=== PATIENT | male | born 1960 | race Caucasian/White ===

== ENCOUNTER → 2019-05-29 16:13 | Outpatient (BNVA) | payer MEDICARE, MEDICAID, SELFPAY | PROVIDERS: Family Provider Nurse Practitioner Family; PCP Nurse Practitioner Family; Visit Provider Nurse Practitioner Family | DX: J44.9 Chronic obstructive pulmonary disease, unspecified (principal); J84.9 Interstitial pulmonary disease, unspecified; R05 Cough | CPT/HCPCS: 71046; 80053; 85025 ==

== ENCOUNTER 2019-06-06 13:53 | Outpatient (CLI) | payer MEDICARE, MEDICAID, SELFPAY ==
--- NOTE | 2019-06-06 14:00 | CT_ITS ---
WS: [id number] CT CHEST TECHNIQUE: Noncontrast CT of the chest with coronal and sagittal reformatted images. CLINICAL INFORMATION: see dx COMPARISON: CTA chest June 06, 2017 DLP: 629.[address] scans at [facility] use at least one of these dose optimization techniques: automat ed exposure control; mA and/or kV adjustment per patient size (includes targeted exams where dose is matched to clinical indication); or iterative reconstruction. FINDINGS: Moderate chronic emphysematous changes. No acute-appearing pulmonary infiltrates. Patchy fibrotic int erstitial and parenchymal opacities worse in the right upper lobe similar in appearance to the prior examination. Associated traction bronchiectasis unchanged. Small subpleural opacity right lower lobe measuring 7 mm is unchanged. Subpleural nodularity in both lungs. Fibrosis both lung apices. No mediastinal or hilar lymphadenopathy. Normal endobronchial tree. Left renal cyst measuring 2.[address]/CT chest wo con [id number] IMPRESSION: 1. Moderate to advanced chronic emphysematous changes with scattered interstit ial fibrosis and parenchymal opacities in both lungs unchanged. 2. Associated traction bronchiectasis worse in the right lung appears unchange d. 3. No mediastinal or hilar lymphadenopathy. 4. No new pulmonary infiltrates.
== END 2019-06-06 13:54 | disposition home or self-care (01) ==
LOC: RADWPI 13:58
PROVIDERS: Family Provider Nurse Practitioner Family; PCP Nurse Practitioner Family; Visit Provider Nurse Practitioner Family
DX: J84.9 Interstitial pulmonary disease, unspecified (principal); J43.9 Emphysema, unspecified; J47.9 Bronchiectasis, uncomplicated
CPT/HCPCS: 71250

== ENCOUNTER 2022-08-17 10:58 | Emergency (ER) | payer MEDICARE, MEDICAID, SELFPAY ==
[2022-08-17] VITALS (10 sets, daily range): BP systolic 132; BP diastolic 54; PULSE 64–95; RESP 15–16; TEMP 37.6; O2SAT 90–96; BMI 17.9
--- NOTE | 2022-08-17 11:07 | XRR_ITS ---
PROCEDURE INFORMATION: Exam: XR Chest Exam date and time: 08/17/2022 11:16 AM Age: 62 years old Clinical indication: Other: Syncopal episode TECHNIQUE: Imaging protocol: Radiologic exam of the chest. Views: 1 view. COMPARISON: CT chest con [id number] 06/06/2019 2:24 PM FINDINGS: Lungs: Patchy indistinct chronic interstitial densities are present in the right and left upper lobes. These findings were present on prior CT examination and appears similar Pleural spaces: Unremarkable. No pleural effusion. No pneumothorax. Heart/Mediastinum: Unremarkable. No cardiomegaly. Bones/joints: Unremarkable. XR/XR chest 1V portable [id number] IMPRESSION: 1. Chronic interstitial lung densities bilateral upper lung field stable since prior. 2. Otherwise negative examination
--- NOTE | 2022-08-17 11:07 | ECG_ITS ---
[facility] Test Date: 2022-08-17 Pat Name: Meek Whitney Department: Room: Gender: Male Edm Operator: : 1960 Requested By: Jordy Ford Order Number: [id number] Derek MD: Jamaal Yoon M.D. Measurements Intervals [place] Rate: 78 P: 63 NV: 134 QRS: 85 QRSD: 106 T: 77 QT: 327 QTc: 373 Interpretive Statements SINUS RHYTHM INCOMPLETE RIGHT BUNDLE BRANCH BLOCK [90+ ms QRS DURATION, TERMINAL R IN V1/V2, 40+ ms S IN I/aVL/V4/V5/V6] MODERATE ST DEPRESSION [0.05+ mV ST DEPRESSION] Compared to ECG 06/06/2017 01:22:42 Incomplete right bundle-branch block now present ST (T wave) deviation now present Sinus bradycardia no longer present Electronically Signed On 08-17-2022 11:52:52 CDT by Jamaal Yoon M.D. [id number]
--- NOTE | 2022-08-17 11:33 | CT_ITS ---
WS: [id number] CT HEAD TECHNIQUE: Noncontrast CT of the head obtained from the skullbase to the vertex. CLINICAL INFORMATION: syncopal episode, fell and hit head COMPARISON: 2010 DLP: 1156.[address] scans at [facility] use at least one of these dose optimization techniques: automated e xposure control; mA and/or kV adjustment per patient size (includes targeted exams where dose is matc hed to clinical indication); or iterative reconstruction. FINDINGS: No evidence of intracranial hemorrhage or mass effect. Ventricular system and basal cisterns are vallejo nt. Moderate small vessel changes with moderate parenchymal volume loss. No extra-axial fluid collect ions. No evidence of mass or mass effect. Benign cary cisterna magna Paranasal sinuses and mastoid air cells are well aerated. .Normal visualized soft tissues. CT/CT head wo con* [id number] IMPRESSION: 1. No evidence of intracranial hemorrhage or mass effect. 2. Moderate small vessel changes. Moderate parenchymal volume loss. 3. No acute intracranial findings.
--- NOTE | 2022-08-17 11:35 | W.ED.DIZZY ---
HPI - Dizziness General: Chief Complaint: Dizziness Stated Complaint: DIZZY Time Seen by Provider: 08/17/22 11:07 History of Present Illness: HPI Narrative: Patient is a 62-year-old male who comes to the ED EMS after syncopal episode. 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 Patient was found down on the ground by a fellow coworker. Patient says he fell down and his head hit brick wall. Patient thinks he had LOC for approximately 30 minutes. He states that his coworkers have been telling him that he seems a little confused over the past 5 days because he has been repeating himself a lot. Here in the ED he endorses malaise and says he just generally feels unwell. Chest pain resolved after syncopal episode and he denies any current or active chest pain. He has been having a productive cough with green sputum for the past 7 days along with body aches. Denies any fevers. He does endorse having several episodes of emesis over the past couple days and he has not been eating or drinking much over the past several days. Associated symptoms: Reports chest pain (Resolved), malaise and syncope; Denies chills, headache(s), nausea, nasal congestion, palpitations or vomiting Associated neuro symptoms: Deny numbness in extremities Review of Systems Const: Reports: body aches and malaise; Denies: fever(s), chills or fatigue Eyes: Denies: change in vision or eye discomfort ENMT: Denies: throat pain, odynophagia, nasal discharge or nasal congestion Card: Reports: chest pain (Resolved), lightheadedness and syncope; Denies: palpitations, edema, swelling of feet/ankles, dyspnea on exertion or orthopnea Resp: Reports: productive cough and change in phlegm color (Green phlegm); Denies: dyspnea or non-productive cough GI: Denies: abdominal pain, nausea, vomiting, diarrhea, constipation or hematochezia : Denies: flank pain, difficulty urinating, dysuria or hematuria Musc: Denies: neck pain, back pain or extremity swelling Skin/Breast: Denies: rash or new lesions Neuro: Reports: dizziness; Denies: headache(s), numbness in extremities or weakness in extremities PFSH ED PFSH: Medical History (Updated 08/18/22 @ 08:32 by NOAH Quick) COPD (chronic obstructive pulmonary disease) Interstitial lung disease Surgical History (Updated 08/17/22 @ 12:42 by NOAH Quick) No pertinent past surgical history Social History Smoking and tobacco status: former smoker Alcohol intake: never Substance/Drug Use: never Lives independently: Yes Household members: spouse Housing: House Marital status: Physical Exam Const: COMMON NORMALS: patient oriented x3 GENERAL APPEARANCE: cooperative and comfortable HENMT: COMMON NORMALS: normocephalic HEAD & SCALP: normocephalic MOUTH: Normal oral and palatal mucosa present THROAT: posterior oropharynx normal and uvula midline Neck/C-Spine: COMMON NORMALS: supple GENERAL: Yes normal visual inspection Resp: COMMON NORMALS: normal respiratory effort, No retractions, No use of accessory muscles and clear to auscultation bilaterally AUSCULTATION: clear to auscultation bilaterally Cardio: COMMON NORMALS: regular rate, regular rhythm, S1 normal heart sound present, S2 normal heart sound present, No gallops present (Cardio), No clicks present (Cardio), No murmurs present (Cardio) and Peripheral pulses 2+ throughout RATE: regular rate RHYTHM: regular rhythm HEART SOUNDS: S1 normal heart sound present and S2 normal heart sound present PERIPHERAL PULSES: Peripheral pulses 2+ throughout GI: COMMON NORMALS: Normal to inspection, nondistended, normoactive bowel sounds present, Soft to palpation, non-tender and no masses PALPATION: Yes Soft to palpation : COMMON NORMALS: Yes no CVA tenderness BLADDER/KIDNEY EXAM: Yes no CVA tenderness Back/Pelvis: COMMON NORMALS: no CVA tenderness Extremity: COMMON NORMALS: normal to inspection Neuro: COMMON NORMALS: patient oriented x3, CN's II-XII intact bilaterally, moves all extremities and no focal motor deficits COORDINATION/BALANCE: [id number] test normal GAIT: Yes Normal gait present MOTOR EXAM: 5/5 motor strength present throughout COORDINATION: [id number] test normal Skin: GENERAL SKIN EXAM: dry skin Course Vital Signs: Vital signs: Vital Signs Temperature 99.6 F 08/17/22 11:00 Pulse Rate 74 08/17/22 15:15 Respiratory Rate 16 08/17/22 12:46 Blood Pressure 132/54 08/17/22 15:15 Pulse Oximetry 90 08/17/22 15:15 Oxygen Delivery Me thod Room Air 08/17/22 12:46 MDM - Dizziness Medical Decision Making Patient is a 62-year-old male who comes to the ED EMS after syncopal episode. 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 Patient was found down on the ground by a fellow coworker. Patient says he fell down and his head hit brick wall. Patient thinks he had LOC for approximately 30 minutes. He states that his coworkers have been telling him that he seems a little confused over the past 5 days because he has been repeating himself a lot. Here in the ED he endorses malaise and says he just generally feels unwell. Chest pain resolved after syncopal episode and he denies any current or active chest pain. He has been having a productive cough with green sputum for the past 7 days along with body aches. Denies any fevers. He does endorse having several episodes of emesis over the past couple days and he has not been eating or drinking much over the past several days. Vital stable. Exam of patient is benign. Labs are all unremarkable. Chest x-ray shows chronic interstitial lung densities bilateral upper lung field stable since prior. No other acute findings noted. Head CT showed no acute findings. EKG shows normal sinus rhythm, no ST segment elevation or depression seen. COVID test was positive. Patient was stable for discharge home and diagnosed with COVID and syncopal episode. He was told to follow-up with his PCP in the next week for reevaluation. He was sent home with a prescription for inhaler, antibiotic and steroid. Strict return to ED precautions given. Patient understood and agreed with plan. Lab Data I reviewed the patient's lab results. 08/17/22 11:37 08/17/22 11:37 Radiology Impressions Chest X-Ray 08/17/22 11:07 IMPRESSION: 1. Chronic interstitial lung densities bilateral upper lung field stable since prior. 2. Otherwise negative examination Head CT 08/17/22 11:33 IMPRESSION: 1. No evidence of intracranial hemorrhage or mass effect. 2. Moderate small vessel changes. Moderate parenchymal volume loss. 3. No acute intracranial findings. Laboratory Results WBC 6.6 10^3/uL (4.0-10.0) 08/17/22 11:37 RBC 4.10 10^6/uL (4.1-5.3) 08/17/22 11:37 Hgb 12.1 g/dL (11.7-16.6) 08/17/22 11:37 Hct 38.9 % (42.0-52.0) L 08/17/22 11:37 MCV 94.9 fl (80-94) H 08/17/22 11:37 MCH 29.5 pg (28.0-34.0) 08/17/22 11:37 MCHC 31.1 g/dL (30.0-36.0) 08/17/22 11:37 RDW 14.5 % (12.1-15.1) 08/17/22 11:37 Plt Count 190 10^3/cmm (130-400) 08/17/22 11:37 MPV 9.3 fL (7.4-10.4) 08/17/22 11:37 Neut % (Auto) 80.3 % 08/17/22 11:37 Lymph % (Auto) 3.2 % 08/17/22 11:37 [place] % (Auto) 14.5 % 08/17/22 11:37 Eos % (Auto) 0.9 % 08/17/22 11:37 Baso % (Auto) 0.5 % 08/17/22 11:37 Neut # (Auto) 5.33 10^3/uL (1.8-7.7) 08/17/22 11:37 Lymph # (Auto) 0.2 10^3/uL (0.8-4.8) L 08/17/22 11:37 [place] # (Auto) 1.0 10^3/uL (0.2-0.9) H 08/17/22 11:37 Eos # (Auto) 0.1 10^3/uL (0.0-0.8) 08/17/22 11:37 Baso # (Auto) 0.0 10^3/uL (0.0-0.1) 08/17/22 11:37 Nucleated RBC % (auto) 0 % 08/17/22 11:37 Nucleated RBCs # 0.0 /100WBC 08/17/22 11:37 Sodium 136 mmol/L (136-145) 08/17/22 11:37 Potassium 4.6 mmol/L (3.5-5.1) 08/17/22 11:37 Chloride 100 mmol/L (98-107) 08/17/22 11:37 Carbon Dioxide 24 mmol/L (22-29) 08/17/22 11:37 Anion Gap 16.6 (5-19) 08/17/22 11:37 BUN 10 mg/dL (8-23) 08/17/22 11:37 Creatinine 0.8 mg/dL (0.7-1.2) 08/17/22 11:37 GFR Calculation 98.3 mL/min (90-130) 08/17/22 11:37 Glucose 88 mg/dL (65-115) 08/17/22 11:37 Calculated Osmolality 280 mOsm/kg (285-295) L 08/17/22 11:37 Calcium 8.7 mg/dL (8.5-10.5) 08/17/22 11:37 Total Bilirubin 0.4 mg/dL (0.15-1.2) 08/17/22 11:37 AST 19 U/L (0-40) 08/17/22 11:37 ALT 7 U/L (0-41) 08/17/22 11:37 Alkaline Phosphatase 100 U/L (40-130) 08/17/22 11:37 Troponin T Baseline 8 ng/L (0-15) 08/17/22 11:37 Troponin T 120 Minute 9.51 ng/L (0-15) 08/17/22 14:19 Delta Troponin T 1.51 ABS# (0-10) 08/17/22 14:19 NT-Pro-B Natriuret Pep 103 pg/mL (0-125) 08/17/22 11:37 Total Protein 6.5 g/dL (6.6-8.7) L 08/17/22 11:37 Albumin 4.0 g/dL (3.5-5.2) 08/17/22 11:37 Globulin 2.5 g/dL (1.3-4.6) 08/17/22 11:37 Influenza Type A Ag negative (Negative) 08/17/22 13:51 Influenza Type B Ag negative (Negative) 08/17/22 13:51 SARS-CoV-2 Ag (Rapid) positive (Negative) 08/17/22 13:51 EKG Data EKG 1: EKG interpretation date: 08/17/22 Interpretation: Sinus rhythm, no ST segment elevation or depression seen. 74 bpm. Discharge Plan Discharge Patient Disposition: Home Clinical Impression: COVID-19, Episode of syncope Condition: Stable Prescriptions: New azithromycin 250 mg tablet See Rx Instructions .ROUTE .COMPLEX Qty: 6 0RF Rx Instructions: For 250 mg dose pack: take 500 mg today (day 1), then 250 mg for 4 days (days 2-5) albuterol sulfate 90 mcg/actuation HFA aerosol inhaler 2 inh inhalation Q6H PRN (Reason: shortness of breath or wheezing) Qty: 8.5 0RF methylprednisolone 4 mg tablets,dose pack See Rx Instructions .ROUTE .COMPLEX Qty: 21 0RF Rx Instructions: orally per package directions ondansetron 4 mg tablet,disintegrating 4 mg PO Q8H PRN (Reason: nausea and vomiting) Qty: 15 0RF Discharge Orders: Discharge ED (Routine); Ordered 08/17/22 Ordered By: Jordy Ford Referrals: Lazara Durant FNP-C [Primary Care Provider] - Discharge Diet: Regular Discharge Activity: Increase activity as tolerated Patient Instructions: COVID-19 (Coronavirus Disease 2019) (ED) Activity Restrictions/Additional Instructions: Follow-up with medical provider as directed in the next 5-7 days. Take medications as prescribed. Return to the ER or your medical provider if condition worsens. Please read and understand discharge instructions. Thank you for choosing [facility] for your healthcare needs today. Please realize this is an emergency room and that we are providing you with a medical screening exam and this may not be complete and all inclusive of all the testing and or work up that you may need to determine your ailment or severity of your illness. It is very important that you follow up as instructed or that you return to the Emergency Department should you have concerns or if your condition changes or worsens in any way. Coding Level of Care Code ED Material Handler for Willem Sheets
[2022-08-17 12:02] LABS: Basophils % 0.5 %; Eosinophils # 0.1 10^3/uL (0.0-0.8); Eosinophils % 0.9 %; Hematocrit 38.9 % (42.0-52.0); Hemoglobin 12.1 g/dL (11.7-16.6); Lymphocytes # 0.2 10^3/uL (0.8-4.8); Lymphocytes % 3.2 %; Mean Corpuscular HGB Conc 31.1 g/dL (30.0-36.0); Mean Corpuscular Hemoglobin 29.5 pg (28.0-34.0); Mean Corpuscular Volume 94.9 fl (80-94); Mean Platelet Volume 9.3 fL (7.4-10.4); Monocytes % 14.5 %; Neutrophils # 5.33 10^3/uL (1.8-7.7); Neutrophils % 80.3 %; Nucleated Red Blood Cells % 0 %; Platelet Count 190 10^3/cmm (130-400); Red Cell Distribution Width 14.5 % (12.1-15.1); White Blood Count 6.6 10^3/uL (4.0-10.0)
[2022-08-17 12:32] LABS: Troponin(5th) Baseline 8 ng/L (0-15)
[2022-08-17 12:40] LABS: Alanine Aminotransferase 7 U/L (0-41); Alkaline Phosphatase 100 U/L (40-130); Blood Urea Nitrogen 10 mg/dL (8-23); Calcium 8.7 mg/dL (8.5-10.5); Carbon Dioxide 24 mmol/L (22-29); Chloride 100 mmol/L (98-107); Globulin 2.5 g/dL (1.3-4.6); Glomerular Filtration Rate 98.3 mL/min (90-130); Glucose 88 mg/dL (65-115); NT Pro B Type Natriuretic Pept 103 pg/mL (0-125); Osmolality Calculated 280 mOsm/kg (285-295); Sodium 136 mmol/L (136-145); Total Bilirubin 0.4 mg/dL (0.15-1.2); Total Protein 6.5 g/dL (6.6-8.7)
[2022-08-17 12:41] LABS: Anion Gap 16.6 (5-19); Aspartate Amino Transferase 19 U/L (0-40); Potassium 4.6 mmol/L (3.5-5.1)
--- NOTE | 2022-08-17 13:07 | ECG_ITS ---
[facility] Test Date: 2022-08-17 Pat Name: Meek Whitney Department: Room: Gender: Male Associate Director: : 1960 Requested By: Jordy Ford Order Number: [id number] Reed MD: Jamaal Yoon M.D. Measurements Intervals [place] Rate: 74 P: 144 TX: 139 QRS: 105 QRSD: 105 T: 109 QT: 318 QTc: 354 Interpretive Statements SINUS RHYTHM ARM LEADS REVERSED [INVERTED P AND QRS IN I] Compared to ECG 08/17/2022 11:25:49 Incomplete right bundle-branch block no longer present ST (T wave) deviation no longer present Electronically Signed On 08-17-2022 17:00:09 CDT by Jamaal Yoon M.D. [id number]
[2022-08-17] MEDS: sodium chloride 0.9% 1,000 ML 999 ML IV (13:10)
--- NOTE | 2022-08-17 14:28 | PC.NURSE ---
Pt hooked up to continuous bedside cardiac monitoring.
[2022-08-17 14:31] LABS: Influenza A by IFA negative (Negative); Influenza B by IFA negative (Negative); SARS Covid-2 Antigen positive (Negative)
[2022-08-17 14:59] LABS: Troponin 5 2HR 9.51 ng/L (0-15)
[2022-08-17 15:03] LABS: Troponin 5 2HR Delta 1.51 ABS# (0-10)
== END 2022-08-17 15:40 | disposition home or self-care (01) ==
PROVIDERS: Emergency Provider Physician Assistant; PCP Nurse Practitioner Family
DX: U07.1 COVID-19 (principal); R55 Syncope and collapse; J44.9 Chronic obstructive pulmonary disease, unspecified; Z87.891 Personal history of nicotine dependence
CPT/HCPCS: 36415; 70450; 71045; 80053; 83880; 84484; 85025; 87426; 87804; 93005; 96360; 99285; J7030

== ENCOUNTER 2023-12-22 09:24 | Outpatient (CLI) | payer MEDICARE, MEDICAID, SELFPAY ==
--- NOTE | 2023-12-22 09:33 | CT_ITS ---
WS: [id number] CT chest w con* [id number] HISTORY: HEMOPTYSIS TECHNIQUE: Axial imaging performed through the thorax. Coronal and sagittal reformats are submitted. All CT scans at [facility] use at least one of these dose optimization techniques: automated exposure control; mA and/or kV adjustment per patient size (includes targeted exams where dose is mat ched to clinical indication); or iterative reconstruction. CONTRAST: Omnipaque 350; 100 mL IV. DLP: 226.33 mGy.cm COMPARISON: 06/06/2019 Lungs and central airway: Patient has severe centrilobular emphysema with pulmonary hyperexpansion. T here are several new, abnormal findings noted throughout the lungs. Irregular shaped cavitary lesion RIGHT upper lobe 1.3 x 2.1 cm. Irregular nodule RIGHT upper lobe 0.9 1.9 cm. Smaller thick-walled cav itary lesion RIGHT middle lobe with associated bronchiectasis and traction 1.0 x 0.6 cm. Moderate siz e area of groundglass attenuation RIGHT lower lobe. Additional minimal soft tissue thickening medial RIGHT upper lobe abutting the mediastinum. LEFT upper lobe nodule 0.9 cm. Posterior segment LEFT lowe r lobe 0.6 cm nodule. There are additional areas of bronchial wall thickening and traction bronchiect asis in the lower lung knight. There is marked bronchial wall thickening in several places along with some mucous debris. Pleura: Normal. No pleural effusion. Heart and pericardium: Normal size heart with no pericardial effusion. Mediastinum and maynor: Mediastinal and hilar lymph nodes are enlarged. Largest RIGHT suprahilar lymph node is 1.6 cm. Bilateral mediastinal lymph nodes with the largest on the LEFT 1.4 cm. Vessels: Mild atherosclerosis aorta. No aneurysm. Normal size pulmonary artery. No RIGHT heart strain . No pulmonary emboli. Chest wall and lower neck: No soft tissue masses. Upper abdomen: Heterogeneous appearance of the liver and spleen during the early arterial phase imagi ng. No definite hepatic mass identified. No adrenal mass. LEFT renal cyst 2.2 cm. Osseous structures: Mild curvature and increased thoracic kyphosis. CT/CT chest w con* [id number] IMPRESSION: 1. Significant interval change in appearance of the lungs and mediastinum sinc e 06/06/2019. 2. RIGHT upper lobe and RIGHT middle lobe cavitary lesions. The largest in the RIGHT upper lobe measures 1.3 x 2.1 cm. 3. Additional bilateral pulmonary nodules as described above with areas of chace undglass attenuation also. 4. Mediastinal and hilar lymphadenopathy with the largest lymph nodes measurin g up to 1.6 cm. 5. Advancing bilateral lower lobe bronchiectasis with bronchial wall thickenin g and secretions. Recommendation: Follow-up PET/CT imaging at this time. Pulmonary cavitary lesio ns, groundglass attenuation and nodules are suspicious for metastatic disease o r primary lung carcinoma with metastatic disease until proven otherwise.
[2023-12-22] MEDS: iohexol 350 mg/mL 500 mL Btl (per mL) IV (10:10)
== END 2023-12-22 09:25 | disposition home or self-care (01) ==
LOC: RAD 09:26
PROVIDERS: PCP Nurse Practitioner Family; Visit Provider Family Medicine
DX: J43.2 Centrilobular emphysema (principal); R91.8 Other nonspecific abnormal finding of lung field; R59.0 Localized enlarged lymph nodes; N28.1 Cyst of kidney, acquired; R04.2 Hemoptysis
CPT/HCPCS: 71260

== ENCOUNTER 2024-01-24 08:06 | Outpatient (CLI) | payer MEDICARE, MEDICAID, SELFPAY ==
[2024-01-24 08:24] VITALS: PULSE 80; RESP 18; O2SAT 94
[2024-01-24] MEDS: albuterol 2.5 mg/3 mL Neb INHALATION (08:24)
[2024-01-24 08:28] VITALS: PULSE 82
== END 2024-01-24 08:07 | disposition home or self-care (01) ==
PROVIDERS: PCP Family Medicine; Visit Provider Family Medicine
DX: R91.8 Other nonspecific abnormal finding of lung field (principal); R94.2 Abnormal results of pulmonary function studies
CPT/HCPCS: 94060; 94726; 94729; J7613

== ENCOUNTER 2024-03-01 07:48 | Oncology outpatient (recurring) (ONCR) | payer MEDICARE, MEDICAID, SELFPAY ==
[2024-03-01 09:18] LABS: Basophils # 0.1 10^3/uL (0.0-0.1); Basophils % 0.7 %; Eosinophils # 0.1 10^3/uL (0.0-0.8); Eosinophils % 1.9 %; Hematocrit 45.2 % (37-53); Lymphocytes # 1.3 10^3/uL (0.8-4.8); Lymphocytes % 16.8 %; Mean Corpuscular HGB Conc 32.3 g/dL (30-55); Mean Platelet Volume 8.8 fL (7.4-10.4); Monocytes # 0.7 10^3/uL (0.2-0.9); Monocytes % 9.5 %; Neutrophils # 5.27 10^3/uL (1.8-7.7); Neutrophils % 70.7 %; Nucleated Red Blood Cells % 0 %; Platelet Count 212 10^3/cmm (157-399); Red Blood Count 4.71 10^6/uL (3.85-5.65); Red Cell Distribution Width 12.6 % (12.1-15.1); White Blood Count 7.45 10^3/uL (3.29-11.43)
[2024-03-01 09:36] LABS: Erythrocyte Sedimentation Rate 4 mm/hr (0-10)
[2024-03-01 09:54] LABS: Alanine Aminotransferase 11 U/L (0-41); Albumin Level 4.2 g/dL (3.5-5.2); Alkaline Phosphatase 108 U/L (40-130); Anion Gap 11.8 (5-19); Aspartate Amino Transferase 21 U/L (0-40); Blood Urea Nitrogen 18 mg/dL (8-23); Calcium 10.1 mg/dL (8.5-10.5); Carbon Dioxide 30 mmol/L (22-29); Chloride 103 mmol/L (98-107); Creatinine Clr Calc Pharmacy 71.5512; Glomerular Filtration Rate 97.6 mL/min (90-130); Glucose 95 mg/dL (65-115); Lactate Dehydrogenase 153 U/L (135-225); Osmolality Calculated 292 mOsm/kg (285-295); Potassium 4.8 mmol/L (3.5-5.1); Sodium 140 mmol/L (136-145); Total Bilirubin 0.5 mg/dL (0.15-1.2); Total Protein 7.2 g/dL (6.6-8.7)
== END 2024-03-10 23:59 | disposition home or self-care (01) ==
PROVIDERS: PCP Family Medicine; Visit Provider Internal Medicine
DX: R91.8 Other nonspecific abnormal finding of lung field (principal); R59.0 Localized enlarged lymph nodes; F32.A Depression, unspecified; J44.9 Chronic obstructive pulmonary disease, unspecified; R05.9 Cough, unspecified; R04.2 Hemoptysis; R41.3 Other amnesia
CPT/HCPCS: 36415; 80053; 83615; 85025; 85651; 99205

== ENCOUNTER 2024-03-21 10:12 | Oncology outpatient (recurring) (ONCR) | payer MEDICARE, MEDICAID, SELFPAY | END 2024-04-10 23:59 | disposition home or self-care (01) | PROVIDERS: PCP Family Medicine; Visit Provider Internal Medicine | DX: R91.8 Other nonspecific abnormal finding of lung field (principal); J44.9 Chronic obstructive pulmonary disease, unspecified; T81.82XA Emphysema (subcutaneous) resulting from a procedure, initial encounter; J47.9 Bronchiectasis, uncomplicated; N28.1 Cyst of kidney, acquired; R41.3 Other amnesia; X58.XXXA Exposure to other specified factors, initial encounter | CPT/HCPCS: 99213 ==

== ENCOUNTER 2024-07-02 08:33 | Outpatient (CLI) | payer MEDICAID, SELFPAY ==
--- NOTE | 2024-07-02 08:35 | MR_ITS ---
WS: [id number] MRI BRAIN WITHOUT CONTRAST HISTORY: UNUSUAL CHANGE IN BEHAVIOR COMPARISON: 08/17/2022 TECHNIQUE: Diffusion imaging, multiplanar T1, T2 and FLAIR imaging obtained. No evidence for acute infarct or hemorrhage. Lopez-white matter differentiation is normal. Moderate symmetric volume loss and atrophy. Mild small vessel disease. No large infarct. Retrocerebellar arachnoid cyst. Small anterior LEFT middle cranial fossa arachnoid cyst. Ventricles and extra-axial spaces are normal. Very slight ectopia of the cerebellar tonsils. No Chiari malformation. Negative dorsum sellae and pituitary gland. Dural venous sinuses and nondalton of [place] demonstrate no abnormality on this unenhanced studies. Paranasal sinuses: Clear. Mastoid air cells: Normal. Calvarium and scalp: Intact. MR/MR head wo con* [id number] IMPRESSION: 1. Normal diffusion imaging. No acute infarct. No hemorrhage. 2. Moderate volume loss and atrophy. Mild small vessel disease. 3. Minimal ectopia of the cerebellar tonsils.
== END 2024-07-02 08:34 | disposition home or self-care (01) ==
PROVIDERS: PCP Family Medicine; Visit Provider Family Medicine
DX: R46.89 Other symptoms and signs involving appearance and behavior (principal); G31.89 Other specified degenerative diseases of nervous system; R93.0 Abnormal findings on diagnostic imaging of skull and head, not elsewhere classified; G93.0 Cerebral cysts
CPT/HCPCS: 70551

== ENCOUNTER 2024-08-16 23:00 | Emergency (ER) | payer MEDICARE, MEDICAID, SELFPAY ==
[2024-08-16 23:00] VITALS: BP 93/52; PULSE 66; RESP 16; TEMP 36.6; O2SAT 97; BMI 16.9
--- NOTE | 2024-08-16 23:26 | ECG_ITS ---
[facility]: 2024[facility]16 Pat Name: Meek Whitney Department: Room: Gender: Male Global Compensation Analyst: : 1960 Requested By: Joe Smith Order Number: [id number] Reed MD: Jamaal Yoon M.D. Measurements Intervals [place] Rate: 65 P: 78 WV: 147 QRS: 88 QRSD: 109 T: 89 QT: 346 QTc: 361 Interpretive Statements SINUS RHYTHM POSSIBLE RIGHT VENTRICULAR CONDUCTION DELAY [RSR (QR) IN V1/V2] EARLY REPOLARIZATION [ST ELEVATION WITH NORMALLY INFLECTED T-WAVE] Compared to ECG 08/17/2022 13:20:30 Early repolarization now present Electronically Signed On 08-17-2024 13:33:34 CDT by Jamaal Yoon M.D. [id number] [id number]
[2024-08-16 23:42] LABS: Basophils % 0.5 %; Eosinophils # 0.2 10^3/uL (0.0-0.8); Eosinophils % 3.1 %; Hematocrit 41.7 % (37-53); Lymphocytes # 1.2 10^3/uL (0.8-4.8); Lymphocytes % 15.6 %; Mean Corpuscular HGB Conc 30.9 g/dL (30-55); Mean Corpuscular Hemoglobin 29.3 pg (27-33); Mean Corpuscular Volume 94.8 fl (82-101); Mean Platelet Volume 8.7 fL (7.4-10.4); Monocytes # 0.6 10^3/uL (0.2-0.9); Monocytes % 8.2 %; Neutrophils % 72.1 %; Nucleated Red Blood Cells % 0 %; Platelet Count 193 10^3/cmm (157-399); Red Cell Distribution Width 13.2 % (12.1-15.1); White Blood Count 7.64 10^3/uL (3.29-11.43)
[2024-08-16] MEDS: sodium chloride 0.9% 1,000 ML 999 ML IV (23:44)
[2024-08-17 00:01] LABS: Troponin(5th) Baseline < 6 ng/L (0-15)
[2024-08-17 00:04] LABS: Alanine Aminotransferase 11 U/L (0-41); Albumin Level 3.8 g/dL (3.5-5.2); Alkaline Phosphatase 110 U/L (40-130); Anion Gap 12.1 (5-19); Aspartate Amino Transferase 15 U/L (0-40); Blood Urea Nitrogen 15 mg/dL (8-23); Calcium 9.8 mg/dL (8.5-10.5); Carbon Dioxide 28 mmol/L (22-29); Chloride 102 mmol/L (98-107); Creatinine Clr Calc Pharmacy 71.5512; Globulin 2.3 g/dL (1.3-4.6); Glomerular Filtration Rate 97.6 mL/min (90-130); Glucose 138 mg/dL (65-115); Osmolality Calculated 289 mOsm/kg (285-295); Potassium 4.1 mmol/L (3.5-5.1); Sodium 138 mmol/L (136-145); Total Bilirubin 0.2 mg/dL (0.15-1.2); Total Protein 6.1 g/dL (6.6-8.7)
[2024-08-17 00:28] VITALS: BP 123/63; PULSE 74; RESP 22; O2SAT 97
[2024-08-17 00:35] VITALS: BP 111/64; BP 124/62; BP 129/63; PULSE 72; PULSE 77; PULSE 80
--- NOTE | 2024-08-17 01:07 | W.ED.SYNCOPE ---
HPI - Syncope General: Chief Complaint: Syncope Stated Complaint: Near syncope, HTN Time Seen by Provider: 08/16/24 23:11 History of Present Illness: 64-year-old male who presents emerged part with complaint of near syncope. He was at his long term and was talking to the nurses when he became lightheaded. He did not fall to the ground. He did not lose consciousness. His blood pressure was noted to be low. He feels weak but otherwise no other significant complaints. Denies any chest pain or shortness of breath. Related Data Home Medications ?Medication ?Instructions ?Recorded ?Confirmed escitalopram oxalate 10 mg tablet mg PO 03/01/24 03/21/24 Allergies Allergy/AdvReac Type Severity Reaction Status Date / Time No Known Allergies Allergy Verified 03/21/24 10:41 PFS ED PFSH: Medical History COPD (chronic obstructive pulmonary disease) Interstitial lung disease Surgical History No pertinent past surgical history Social History Smoking and tobacco/nicotine status: never used tobacco/nicotine Alcohol intake: never Substance/Drug Use: never Lives independently: Yes Household members: spouse Housing: House Marital status: Physical Exam Const: COMMON NORMALS: patient oriented x3 HENMT: COMMON NORMALS: normocephalic, atraumatic, hearing grossly normal bilaterally, external ears normal, EAC's normal, TM's normal bilaterally, Normal external nose present, Normal nasal mucous membranes and turbinates present, moist oral mucous membranes, oropharynx normal, dentition normal and gingiva normal HEAD & SCALP: normocephalic and atraumatic NOSE: Normal external nose present and Normal nasal mucous membranes and turbinates present EXTERNAL EAR: Yes external ears normal EXTERNAL AUDITORY CANAL: EAC's normal TYMPANIC MEMBRANE: TM's normal bilaterally Neck/C-Spine: COMMON NORMALS: no JVD Resp: COMMON NORMALS: normal respiratory effort, No retractions, No use of accessory muscles, clear to auscultation bilaterally and percussion normal AUSCULTATION: clear to auscultation bilaterally PERCUSSION: percussion normal Cardio: COMMON NORMALS: no JVD, regular rate, regular rhythm, S1 normal heart sound present, S2 normal heart sound present, No gallops present (Cardio), No clicks present (Cardio), No murmurs present (Cardio), No rub (Cardio) and Peripheral pulses 2+ throughout RATE: regular rate RHYTHM: regular rhythm HEART SOUNDS: S1 normal heart sound present and S2 normal heart sound present PERIPHERAL PULSES: Peripheral pulses 2+ throughout GI: COMMON NORMALS: Normal to inspection, nondistended, normoactive bowel sounds present, Soft to palpation, non-tender, No hepatosplenomegaly present, no masses and no bruits PALPATION: Yes Soft to palpation and Yes No hepatosplenomegaly present Neuro: COMMON NORMALS: patient oriented x3, CN's II-XII intact bilaterally, no focal motor deficits and no sensory deficits noted Course Vital Signs: Vital signs: Vital Signs Temperature 97.9 F 08/16/24 23:00 Pulse Rate 72 08/17/24 00:35 Respiratory Rate 22 H 08/17/24 00:28 Blood Pressure 111/64 08/17/24 00:35 Pulse Oximetry 97 08/17/24 00:28 Oxygen Delivery Me thod Room Air 08/17/24 00:28 MDM - Syncope Medical Decision Making Patient with hypotension and near syncope. No significant abnormality noted on labs. Patient given IV fluids and feeling much better now. Blood pressure has improved. Orthostatics after IV fluids are normal. I suspect patient's symptoms just secondary to orthostatic hypotension. EKG shows nonspecific ST and T wave changes. Patient never had any chest pain or palpitations. Denies any indication of cardiopulmonary disease at this time. Patient does not have any neurodeficits. Discussed with patient that he is to drink more fluids. Lab Data 08/16/24 23:33 08/16/24 23:33 Laboratory Results WBC 7.64 10^3/uL (3.29-11.43) 08/16/24 23: RBC 4.40 10^6/uL (3.85-5.65) 08/16/24 23: Hgb 12.90 g/dL (11.27-16.99) 08/16/24 23: Hct 41.7 % (37-53) 08/16/24 23: MCV 94.8 fl (82-101) 08/16/24 23: MCH 29.3 pg (27-33) 05/08/25 23:33 MCHC 30.9 g/dL (30-55) 08/16/24 23:33 RDW 13.2 % (12.1-15.1) 08/16/24 23: Plt Count 193 10^3/cmm (157-399) 08/16/24 23:33 MPV 8.7 fL (7.4-10.4) 08/16/24 23:33 Neut % (Auto) 72.1 % 08/16/24 23: Lymph % (Auto) 15.6 % 08/16/24 23: [place] % (Auto) 8.2 % 08/16/24 23: Eos % (Auto) 3.1 % 08/16/24 23: Baso % (Auto) 0.5 % 08/16/24 23: Neut # (Auto) 5.50 10^3/uL (1.8-7.7) 08/16/24 23: Lymph # (Auto) 1.2 10^3/uL (0.8-4.8) 08/16/24 23:33 [place] # (Auto) 0.6 10^3/uL (0.2-0.9) 08/16/24 23: Eos # (Auto) 0.2 10^3/uL (0.0-0.8) 08/16/24 23: Baso # (Auto) 0.0 10^3/uL (0.0-0.1) 08/16/24 23: Nucleated RBC % (auto) 0 % 08/16/24 23: Nucleated RBCs # 0.0 /100WBC 08/16/24 23:33 Sodium 138 mmol/L (136-145) 08/16/24 23:33 Potassium 4.1 mmol/L (3.5-5.1) 08/16/24 23:33 Chloride 102 mmol/L (98-107) 08/16/24 23: Carbon Dioxide 28 mmol/L (22-29) 08/16/24 23:33 Anion Gap 12.1 (5-19) 08/16/24 23:33 BUN 15 mg/dL (8-23) 08/16/24 23:33 Creatinine 0.8 mg/dL (0.7-1.2) 08/16/24 23:33 GFR Calculation 97.6 mL/min (90-130) 08/16/24 23:33 Glucose 138 mg/dL (65-115) H 08/16/24 23:33 Calculated Osmolality 289 mOsm/kg (285-295) 08/16/24 23:33 Calcium 9.8 mg/dL (8.5-10.5) 08/16/24 23:33 Total Bilirubin 0.2 mg/dL (0.15-1.2) 08/16/24 23:33 AST 15 U/L (0-40) 08/16/24 23:33 ALT 11 U/L (0-41) 08/16/24 23:33 Alkaline Phosphatase 110 U/L (40-130) 08/16/24 23:33 Troponin T Baseline < 6 ng/L (0-15) 08/16/24 23:33 Total Protein 6.1 g/dL (6.6-8.7) L 08/16/24 23:33 Albumin 3.8 g/dL (3.5-5.2) 08/16/24 23:33 Globulin 2.3 g/dL (1.3-4.6) 08/16/24 23:33 All radiology interpretation(s) finalized by discharge Discharge Plan Discharge Patient Disposition: Home Clinical Impression: Orthostatic hypotension Condition: Stable Prescriptions: No Action escitalopram oxalate 10 mg tablet PO Discharge Orders: Discharge ED (Routine); Ordered 08/17/24 Ordered By: Joe Smith Referrals: Jackson Harrell MD [Primary Care Provider, Family Practice] Patient Instructions: Opioid Safety, Pain Management Print Language: Kyrgyz Coding Level of Care Code ED Client Development Director for Willem Sheets
[2024-08-17 02:11] VITALS: BP 108/65; PULSE 75; RESP 16; O2SAT 98
== END 2024-08-17 02:12 | disposition home or self-care (01) ==
PROVIDERS: Emergency Provider Emergency Medicine; PCP Family Medicine
DX: I95.1 Orthostatic hypotension (principal); J44.9 Chronic obstructive pulmonary disease, unspecified
CPT/HCPCS: 36415; 80053; 84484; 85025; 93005; 99284; J7030

== ENCOUNTER → 2024-09-26 07:36 | Outpatient (BNVA) | payer MEDICAID, SELFPAY | PROVIDERS: PCP Family Medicine; Referring Provider Family Medicine; Visit Provider Psychiatry & Neurology Neurology | DX: R42 Dizziness and giddiness (principal); I95.1 Orthostatic hypotension; R41.3 Other amnesia | CPT/HCPCS: 99203 ==

== ENCOUNTER → 2025-01-08 13:58 | Outpatient (BNVA) | payer MEDICAID, SELFPAY | PROVIDERS: PCP Family Medicine; Referring Provider Psychiatry & Neurology Neurology; Visit Provider Internal Medicine | DX: R07.9 Chest pain, unspecified (principal); R55 Syncope and collapse; R06.09 Other forms of dyspnea; R42 Dizziness and giddiness | CPT/HCPCS: 93005; 99204 ==

== ENCOUNTER 2025-01-31 06:49 | Outpatient (CLI) | payer MEDICAID, SELFPAY ==
--- NOTE | 2025-01-31 07:00 | USCV_ITS ---
Meek Whitney Age: 64 Gender: M : 1960 Exam Date: 01/31/2025 07:09 Ordering Phys: Jamaal Yoon M.D ([email or web address]) Technologist: Exam Location: [facility] [place] Indication: cp sob BP: 120 / 75 HR: 70 Rhythm: Sinus Technical Quality: Adequate MEASUREMENTS (Male / Female) Normal Values 2D ECHO LV Diastolic Diameter PLAX 4.0 cm 4.2 - 5.9 / 3.9 - 5.3 cm IVS Diastolic Thickness 1.0 cm 0.6 - 1.0 / 0.6 - 0.9 cm IVS Systolic Thickness 1.3 cm LVPW Diastolic Thickness 1.0 cm 0.6 - 1.0 / 0.6 - 0.9 cm LVPW Systolic Thickness 1.4 cm LVOT Diameter 2.1 cm LV Ejection Fraction 2D Teich 71.6 % LV Ejection Fraction MOD 4C 56.2 % LV Ejection Fraction MOD 2C 56.8 % LV Ejection Fraction 2C AL 56.9 % LA Diameter 2.5 cm RA Systolic Volume 4C AL 24.8 ml RA Systolic Volume 4C MOD 22.4 ml LA Sys Volume AL 37.9 cm cubed LA Sys Volume Index AL 20.0 cm cubed/m squared Aorta at Sinotubular Diameter 3.2 cm M-MODE LA Ao Ratio MM 0.9 AV Cusp Separation MM 2.0 cm DOPPLER AV Peak Velocity 189.3 cm/s LVOT Peak Velocity 104.0 cm/s AV Area Cont Eq vti 2.5 cm squared AV Area Cont Eq pk 2.0 cm squared MV Peak Velocity 81.0 cm/s MV Area PHT 3.7 cm squared Mitral E to A Ratio 1.1 TV Peak Velocity 197.3 cm/s TR Peak Velocity 264.0 cm/s TR Peak Gradient 27.9 mmHg TV Peak E Velocity 81.0 cm/s FINDINGS Left Ventricle Normal left ventricular size, systolic function and wall thickness, with no regional wall motion abnormalities. Left ventricular ejection fraction is estimated at 60 %. Normal diastolic function. Right Ventricle Normal right ventricular size and systolic function. Right Atrium Normal right atrial size. Left Atrium Normal left atrial size. IA Septum Normal appearance of the interatrial septum. Mitral Valve Moderately thickened mitral valve. No mitral valve stenosis. Trace mitral valve regurgitation. Aortic Valve Moderate aortic valve calcification. No aortic valve stenosis. Mild aortic valve regurgitation. Tricuspid Valve Normal tricuspid valve structure. No tricuspid valve stenosis or regurgitation. Normal pulmonary pressure. Pulmonic Valve Normal pulmonic valve structure. No pulmonic valve stenosis or regurgitation. Pericardium No pericardial effusion. Aorta Normal diameter of the aortic root and ascending thoracic aorta. IVC Normal IVC diameter. CONCLUSIONS Normal left ventricular size, systolic function and wall thickness, with no regional wall motion abnormalities. Left ventricular ejection fraction is estimated at 60 %. Normal diastolic function. Moderately thickened mitral valve. No mitral valve stenosis. Trace mitral valve regurgitation. Moderate aortic valve calcification. No aortic valve stenosis. Mild aortic valve regurgitation. No significant valvular abnormalities. Right atrial pressure is around 5 mm of mercury. Doug Hirsch MD (Electronically Signed) Final Date: 10 February 2025 18:05 S
== END 2025-01-31 06:50 | disposition home or self-care (01) ==
LOC: RAD 06:51
PROVIDERS: PCP Family Medicine; Visit Provider Internal Medicine
DX: R07.9 Chest pain, unspecified (principal); R06.02 Shortness of breath; I05.9 Rheumatic mitral valve disease, unspecified; I35.8 Other nonrheumatic aortic valve disorders; I35.1 Nonrheumatic aortic (valve) insufficiency
CPT/HCPCS: 93306

== ENCOUNTER → 2025-02-26 12:11 | Outpatient (BNVA) | payer MEDICAID, SELFPAY | PROVIDERS: PCP Family Medicine; Visit Provider Internal Medicine | DX: I95.1 Orthostatic hypotension (principal) | CPT/HCPCS: 99213 ==